=== PATIENT | male | born 1950 | race Caucasian/White ===

== ENCOUNTER → 2018-05-01 | Outpatient (CLI) | payer OTHER ==
[~2018-05-01] VITALS: Ht 180.3 cm; Wt 83.9 kg
[~2018-05-01] MED LIST: ALPRAZOLAM2 MG PO; ASPIR 8181 MG PO; CENTRUM SILVER1 EAC2 PO; CO Q-10100 MG PO; ESZOPICLONE2 MG PO; FINASTERIDE5 MG PO; FLONASE 0.05%50 MCG NASAL; GLUCOSAMINE &1 EAC1 PO; LIPITOR 20 MG T20 M1 PO; LISINOPRIL20 MG PO; OMEPRAZOLE 20 M20 M1 PO; SINGULAIR 10 MG10 M1 PO; VENTOLIN HFA 1818 GM INH; VITAMIN B-12500 MCG PO; VITAMIN D1000 UNI1 PO; ZINC50 M2 PO
--- NOTE | ~2018-05-01 | PATH ---
[facility] [address] [place] [address] PATHOLOGY RPT PROCEDURE Name: HILARIO MCCRAY Room #: REG [facility].#: [id number] Admission: 05/01/18 Date of : 52 Discharge: Report #: [id number] Path Case #: [id number] [facility] Accession Number: [id number] . 01 Material submitted: . BX OF OLD POLYP SITE PROX DESC. COLON ? POLYP . 01 Clinical history: . Pre-OP DX: Hx of polyps Post-OP DX: Colon polyp, diverticulosis . 02 Diagnosis: Old polyp site, proximal descending colon, ? polyp, endoscopic biopsy: - Multiple fragments showing inflamed tubular adenoma. - No definite high-grade dysplasia present. (IUV:trace; 05/02/2018) MBR/05/02/2018 . 02 Comment: The presence of acute inflammation in close association with the tubular adenoma limits interpretation. Findings are likely reactive due to a "re-biopsy". Definite features to suggest high-grade dysplasia are not identified. The tubular adenoma is; however, present in multiple fragments sampled. Please correlate clinically with endoscopic findings for a complete resection of this polyp. (IUV:knurling machine operator; 05/02/2018) . 02 Electronically signed: . Belkis Buchanan MD, Pathologist NPI- [id number] . 01 Gross description: . Received in formalin labeled "Hilario Mccray, BX of old polyp site, proximal descending colon," are multiple segments of zimmerman soft tissue measuring 2.5 x 0.5 x 0.1 cm in aggregate dimensions. The specimen is filtered and entirely submitted in cassette A1. (TSD; 05/01/2018) TOB/TOB . 02 Pathologist provided ICD-10: D12.4 . 02 CPT . 673206 Specimen Comment: A courtesy copy of this report has been sent to Specimen Comment: [phone], . Specimen Comment: Report sent to / DR DOWELL [address] [address] PATHOLOGY RPT PROCEDURE Name: HILARIO MCCRAY Room #: REG [facility] Burns#: [id number] Admission: 05/01/18 Date of : 52 Discharge: Report #: [id number] Path Case #: [id number] Performed at: [address], [place], [place] [id number] MD Kamlesh Solis MD Phone: [phone] Performed at: [address] [id number] MD Belkis Buchanan MD Phone: [phone]
--- NOTE | ~2018-05-01 | P ---
[facility] [place] [address] PROCEDURE REPORT Name: SHORTY MCCRAY [facility] [id number] Admission: 05/01/18 Attend Phys: Alvin Thomas MD Discharge: Date of : 52 Report #: [id number] THIS REPORT FOR: //name// CC: Andrea Thomas BRIEF HISTORY: The patient is a 67-year-old male with a history of greater than 40 adenomas lifetime. He has had genetic testing, but genetic studies were negative, but due to his history, he is considered to be at a higher risk and we are following a high risk surveillance protocol. Earlier this year, colonoscopy was completed and he was found to have residual polyp at a previous polypectomy site in the proximal descending colon. The polyp was flat and there was concern that not all the polyp was removed. He presents today for further evaluation of the previous polypectomy site and further intervention if needed. PREOPERATIVE DIAGNOSIS: History of greater than 40 adenomas lifetime with persistent polyp. POSTOPERATIVE DIAGNOSES: 1. Persistent polyp, proximal descending colon. 2. Mild to moderate sigmoid diverticulosis coli with few scattered diverticula in the proximal colon. MEDICATIONS: Deep sedation with propofol per anesthesia. SPECIMEN: Polyp, proximal descending colon. ESTIMATED BLOOD LOSS: 3 mL. PROCEDURE: Colonoscopy to cecum and terminal ileum with biopsy and plasma argon coagulation of residual polyp. FINDINGS: Prior to propofol sedation, the procedure of colonoscopy was discussed with the patient as well as potential risks and its complications. He indicates he understands and desires to proceed. DESCRIPTION OF PROCEDURE: With the patient in the left lateral decubitus position, digital examination was completed, which revealed no abnormalities. Subsequently, the Olympus video colonoscope was introduced in the rectum, advanced under direct vision to the cecum. Done with minimal difficulty. The cecum was identified by the ileocecal valve and the appendiceal orifice. I was able to visualize the distal segment of the terminal ileum, which was inspected and noted to be unremarkable. At that point, the scope was slowly withdrawn and careful circumferential views were obtained. Upon slow withdrawal of the scope, the prep was noted to be good. The mucosa was within normal limits, normal vascular pattern, normal light reflex. As we withdrew the scope, few scattered [facility] [address] [place] [address] PROCEDURE REPORT Name: SHORTY MCCRAY Humberto Room #: REG [facility].#: [id number] Admission: 05/01/18 Attend Phys: Alvin Thomas MD Discharge: Date of : 52 Report #: [id number] diverticula were seen in the proximal colon. There was no endoscopic evidence of diverticulitis. No mucosal lesions were seen until the proximal descending colon was reached and tattoo foreman were identified. In the vicinity of the tattoo foreman, there was a very flat polyp that was about 12 mm in length and about 5-6 mm in width. This was extremely flat and just seen with narrow banded imaging. Multiple biopsies were obtained and essentially much of the polyp was removed. Following multiple biopsies, we treated the margins as well as the polypectomy site with argon plasma coagulation. The scope was further withdrawn and no additional polypoid lesions were seen. There was mild to moderate sigmoid diverticular disease without endoscopic evidence of diverticulitis. The scope was withdrawn in the rectum and upon retroflexion, no abnormalities were seen. The scope was withdrawn. The patient tolerated the procedure well. CONDITION OF THE PATIENT UPON DISCHARGE: Following the procedure, the patient drowsy, aroused, conversant and will be discharged home when fully ambulatory. INSTRUCTIONS TO THE PATIENT AND FAMILY AT THE TIME OF DISCHARGE: As we were concerned, he did still have residual polyp at the previous polypectomy site. We will follow up on pathology. We will discuss further with the patient. Suggest he return in 1 to 2 years for followup colonoscopy. With the use of argon plasma coagulation, hopefully any residual polyp has been completely destroyed. Also discussed with the patient potential risk of post-procedure bleeding due to use of argon plasma coagulation. <ELECTRONICALLY SIGNED> By: Alvin Thomas MD 05/02/18 1618 [id number] Alvin Thomas MD /nt
== END | disposition home or self-care (01) ==
LOC: GI 06:43
DX: Z09 Encounter for follow-up examination after completed treatment for conditions other than malignant neoplasm (principal); Z86.010 Personal history of colon polyps; D12.4 Benign neoplasm of descending colon; K57.30 Diverticulosis of large intestine without perforation or abscess without bleeding; I10 Essential (primary) hypertension; E78.5 Hyperlipidemia, unspecified; G47.33 Obstructive sleep apnea (adult) (pediatric); J45.909 Unspecified asthma, uncomplicated; K21.9 Gastro-esophageal reflux disease without esophagitis; Z98.890 Other specified postprocedural states; Z87.891 Personal history of nicotine dependence; Z79.899 Other long term (current) drug therapy; Z88.8 Allergy status to other drugs, medicaments and biological substances; Z79.82 Long term (current) use of aspirin
CPT/HCPCS: 62110; 62900